=== PATIENT | female | born 1960 | race Caucasian/White ===

== ENCOUNTER 2023-07-30 08:12 | Outpatient (CLI) | payer OTHER, MEDICARE ==
--- NOTE | 2023-07-30 14:44 | Ultrasound Report ---
PROCEDURE: Abdomen Limited INDICATIONS: ABD MASS TECHNIQUE: Real-time focused scanning was performed of the abdomen, with image documentation. COMPARISONS: None. FINDINGS: Severely limited examination due to the patient's body habitus. Liver: Liver is normal in size and increased in echotexture. Portal vein is not visualized. Gallbladder: Surgically absent. Biliary ducts: Intrahepatic bile ducts are non-dilated. Extrahepatic bile duct caliber is not visua lized. Pancreas: Not visualized. Right kidney: Normal in size and echotexture. Right kidney measures 9.9 cm long. No hydronephrosi s or nephrolithiasis. No solid masses. No complex renal cystic lesions which require follow-up. Aorta: Visualized aorta is normal in caliber at less than 3 cm. IVC: Intrahepatic inferior vena cava is patent. Miscellaneous: No free abdominal fluid. IMPRESSION: 1. Severely limited examination due to the patient's body habitus. No mass is identified, but a mass cannot be excluded. Recommend CT with contrast for further evaluation. Reviewed by: Jerica Mabry MD on 07/30/2023 2:42 PM PST Approved by: Jerica Mabry MD on 07/30/2023 2:42 PM PST Station ID: [id number]
== END 2023-07-30 08:13 | disposition home or self-care (01) ==
LOC: DI 08:12
PROVIDERS: ATTEND Nurse Practitioner
DX: R19.01 Right upper quadrant abdominal swelling, mass and lump (principal)

== ENCOUNTER 2023-10-19 23:15 | Emergency (ER) | payer OTHER, MEDICARE ==
[2023-10-20 00:05] LABS: BASOPHILS # (AUTO) 0.1 10^3/uL (0.0-0.1); BASOPHILS % (AUTO) 0.5 %; EOSINOPHILS # (AUTO) 0.2 10^3/uL (0.0-0.7); EOSINOPHILS % (AUTO) 1.1 %; HCT - HEMATOCRIT 47.3 % (37.0-47.0); HGB - HEMOGLOBIN 15.8 g/dL (12.0-16.0); LYMPHOCYTES % (AUTO) 28.7 %; MEAN CORPUSCULAR HEMOGLOBIN 31.5 pg (27.0-31.0); MEAN CORPUSCULAR HGB CONC 33.4 g/dL (32.0-36.0); MEAN CORPUSCULAR VOLUME 94.4 fL (81.0-99.0); MEAN PLATELET VOLUME 11.8 fL (7.9-10.8); MONOCYTES % (AUTO) 7.1 %; NEUTROPHILS # (AUTO) 8.7 10^3/uL (1.5-6.6); NEUTROPHILS % (AUTO) 62.4 %; PLT - PLATELET COUNT 255 10^3/uL (130-450); RED BLOOD COUNT 5.01 10^6/uL (4.20-5.40); RED CELL DISTRIBUTION WIDTH 12.3 % (12.0-15.0)
[2023-10-20 00:21] LABS: ALBUMIN 4.2 g/dL (3.2-5.5); ALBUMIN/GLOBULIN RATIO 1.4 (1.0-2.2); BILIRUBIN,TOTAL 0.4 mg/dL (0.2-1.0); CALCIUM 9.9 mg/dL (8.5-10.3); CREATININE 0.9 mg/dL (0.6-1.3); POTASSIUM 3.3 mmol/L (3.5-4.5); TOTAL PROTEIN 7.1 g/dL (6.4-8.9)
[2023-10-20] MEDS: KETOROLAC 15 MG/ML VIAL IVP STA (00:33)
[2023-10-20] MEDS: SODIUM CHLORIDE 0.9% 1,000 ML IV STA (00:33)
[2023-10-20] MEDS: ONDANSETRON ODT 4 MG TABLET TL STA (00:34)
[2023-10-20] MEDS ORDERED: iohexoL-300 100 ML VIAL ONE (00:38)
[2023-10-20] MEDS: iohexoL-300 100 ML VIAL IVP ONE (01:01)
--- NOTE | 2023-10-20 01:23 | CT Report ---
PROCEDURE: Abdomen/Pelvis W INDICATIONS: RLQ PAIN CONTRAST: 100 ML OMNI 300 TECHNIQUE: After the administration of intravenous contrast, a CT scan of the abdomen and pelvis was performed. Images were recorded and evaluated at appropriate window settings. Reformats: coronal and sagittal. F or radiation dose reduction, the following was used: automated exposure control, adjustment of mA and /or kV according to patient size. COMPARISON: Correlation is made with abdominal ultrasound, 07/30/2023 FINDINGS: Image quality: Diagnostic. Lower chest: Unremarkable. Liver: No solid mass. Diffuse fatty liver infiltration can be seen. Gallbladder: Cholecystectomy. Biliary tree: No intrahepatic or extrahepatic dilation, accounting for age. Spleen: No splenomegaly. An accessory splenule is incidentally noted along the hilum of the primary spleen. Pancreas: No pancreatic ductal dilation. Adrenals: No adrenal nodule. Kidneys and ureters: No hydronephrosis. No renal cystic lesion which requires follow up. No solid mas s. Stomach, bowel and peritoneum: No appendix can be seen, either normal or abnormal. No focal right low er quadrant inflammatory changes are seen. No dilated loops of small bowel are seen. No significant colonic abnormality is seen. No pathologic free fluid. Lymph nodes: No central or retroperitoneal adenopathy. Vessels: No infrarenal aortic aneurysm. Patent portal vein. PELVIS Reproductive organs: This patient is status post hysterectomy. No adnexal masses can be seen. Bladder: No abnormal wall thickening, accounting for underdistention. Pelvic lymph nodes: No pelvic adenopathy by size criteria. Bones: No aggressive osseous abnormality. Mild levoconvex scoliotic curvature is seen. At least mod erate lumbar spine degenerative change can be seen. Other: No significant ventral or inguinal hernia. IMPRESSION: No appendix can be seen, either normal or abnormal. No focal right lower quadrant inflammatory change s are seen. Additional findings: Fatty liver infiltration Cholecystectomy Accessory splenule Hysterectomy Mild levoconvex sclerotic curvature Lumbar spine degenerative change Reviewed by: Jim Jordan MD on 10/20/2023 12:22 AM ESTEBAN Approved by: Jim Jordan MD on 10/20/2023 12:22 AM ESTEBAN Station ID: [id number]
--- NOTE | 2023-10-20 01:31 | ED Physician Documentation ---
PD HPI ABD PAIN - Stated complaint Stated Complaint: R ABD PX - Chief complaint Chief Complaint: Abd Pain - History obtained from History obtained from: Patient - Additional information Additional information: 63-year-old female presents for right-sided upper and lower abdominal pain with nausea, 1 episode of emesis after arrival to the emergency department. Patient states that earlier this week she underwent EGD as far as routine screening for her chronic GERD. She states that everything was normal. This evening her pain developed and feels similar to when she was diagnosed with a kidney stone several years ago. Denies fevers, chills, urinary changes. Review of Systems Constitutional: denies: Fever, Chills Cardiac: denies: Chest pain / pressure, Palpitations, Calf pain Respiratory: denies: Dyspnea, Cough, Wheezing GI: reports: Abdominal Pain, Nausea, Vomiting. denies: Constipation, Diarrhea : denies: Dysuria, Frequency, Hesitancy PD PAST MEDICAL HISTORY - Past Medical History Cardiovascular: Hypertension GI: Other : Kidney stones Other Past Medical History: IBS - Past Surgical History Past Surgical History: Yes General: Cholecystectomy /[employer]: Hysterectomy - Present Medications Home Medications: Ambulatory Orders Medication Instructions Recorded Confirmed Dicyclomine [Bentyl] 1 - 2 tab PO QID PRN #20 cap 10/20/23 Ondansetron Odt [Zofran] 4 mg TL Q6H PRN #10 tablet 10/20/23 - Allergies Allergies/Adverse Reactions: Allergies Allergy/AdvReac Type Severity Reaction Status Date / Time Penicillins Allergy Rash Verified 10/19/23 23:44 adhesive AdvReac Rash Verified 10/19/23 23:44 cat dander AdvReac Respiratory Verified 10/19/23 23:44 - Social History Does the pt smoke?: No Smoking Status: Never smoker Does the pt drink ETOH?: No Does the pt have substance abuse?: No - Immunizations Immunizations are current?: Yes - POLST Patient has POLST: No PD ED PE NORMAL - Vitals Vital signs reviewed: Yes - General General: Alert and oriented X 3, No acute distress, Well developed/nourished - Cardiac Cardiac: RRR, Strong equal pulses - Respiratory Respiratory: No respiratory distress, Clear bilaterally - Abdomen Abdomen: Soft, Non tender, Non distended - Derm Derm: Normal color, Warm and dry, No rash - Extremities Extremities: No deformity, No tenderness to palpate, Normal ROM s pain, No edema - Neuro Neuro: Alert and oriented X 3, coremaker floor 2-12 intact, No motor deficit, Normal speech Results - Vitals Vitals: Vital Signs - 24 hr 10/19/23 10/19/23 10/20/23 23:38 23:55 01:39 Temperature 36.6 C Heart Rate 92 89 82 Respiratory 18 18 Rate Blood Pressure 125/96 H 128/89 H O2 Saturation 100 98 10/20/23 03:11 Temperature Heart Rate 84 Respiratory 18 Rate Blood Pressure 117/100 H O2 Saturation 98 Oxygen O2 Source Room air - Labs Labs: Laboratory Tests 10/20/23 10/20/23 10/20/23 00:00 00:00 01:38 WBC 14.0 H RBC 5.01 Hgb 15.8 Hct 47.3 H MCV 94.4 MCH 31.5 H MCHC 33.4 RDW 12.3 Plt Count 255 MPV 11.8 H Neut # (Auto) 8.7 H Lymph # (Auto) 4.0 H Hinds # (Auto) 1.0 Eos # (Auto) 0.2 Baso # (Auto) 0.1 Absolute Nucleated RBC 0.00 Nucleated RBC % 0.0 Sodium 138 Potassium 3.3 L Chloride 104 Carbon Dioxide 24 Anion Gap 10.0 BUN 13 Creatinine 0.9 Estimated GFR (MDRD) 63 L Glucose 123 H Calcium 9.9 Total Bilirubin 0.4 AST 20 ALT 20 Alkaline Phosphatase 74 Total Protein 7.1 Albumin 4.2 Globulin 2.9 Albumin/Globulin Ratio 1.4 Lipase 25 Urine Color YELLOW Urine Clarity CLEAR Urine pH 5.0 Ur Specific Mathews <=1.005 Urine Protein NEGATIVE Urine Glucose (UA) NEGATIVE Urine Ketones NEGATIVE Urine Occult Blood NEGATIVE Urine Nitrite NEGATIVE Urine Bilirubin NEGATIVE Urine Urobilinogen 0.2 (NORMAL) Ur Leukocyte Esterase NEGATIVE Ur Microscopic Review NOT INDICATED Urine Culture Comments NOT INDICATED PD Medical Decision Making - ED course Complexity details: reviewed results, re-evaluated patient, considered differential, d/w patient, d/w family ED course: Nontoxic patient with right-sided upper and lower abdominal pain. Patient threw up once after arrival to the emergency department and stated that after she threw up her pain was still present, but much better. Abdomen is soft, minimal tenderness to deep palpation in the right side. Based on patient's recent history of endoscopy as well as history of renal stones will order labs, CT imaging. IV fluids, nausea medications, Toradol ordered Laboratory work is reviewed, there is mild leukocytosis, expected in vomiting. Other laboratory work is unremarkable. Hemoglobin normal, normal electrolytes, liver and kidney enzymes normal. CT unable to visualize appendix, however there were no secondary symptoms of appendicitis. Given patient's otherwise benign abdominal exam I have low suspicion for appendicitis at this time. Patient has had no further episodes of emesis since arrival to ED bed. Patient and at bedside informed of all lab and imaging findings. No obvious source of patient's discomfort, will trial Bentyl and Zofran for home. Patient counseled to return to the emergency department if she notices worsening symptoms. Departure - Departure Disposition: Home, Self Care Clinical Impression: Abdominal pain Qualifiers: Abdominal location: generalized Qualified Code(s): R10.84 - Generalized abdominal pain Condition: Stable Instructions: Abdominal Pain Prescriptions: Dicyclomine [Bentyl] 1 - 2 tab PO QID PRN #20 cap PRN Reason: Abdominal Pain Ondansetron Odt [Zofran] 4 mg TL Q6H PRN #10 tablet PRN Reason: Nausea / Vomiting Comments: Your laboratory work today did not show any acute findings. On abdominal CT today we were unable to visualize your appendix, however there were no secondary signs of appendicitis, no kidney stones. An antinausea medication as well as an antispasm medication has been sent to the [place] pharmacy. If you are still experiencing symptoms call your GI doctor for follow-up. If your symptoms worsen you may return to the emergency department for repeat evaluation Forms: PCP List Discharge Date/Time: 10/20/23 03:11
[2023-10-20 01:40] VITALS: O2SAT 98
[2023-10-20 02:12] LABS: BILIRUBIN,URINE NEGATIVE (NEGATIVE); GLUCOSE, URINE (UA) NEGATIVE (NEGATIVE); KETONES,URINE (UA) NEGATIVE (NEGATIVE); LEUKOCYTE ESTERASE, URINE NEGATIVE (NEGATIVE); NITRITE,URINE NEGATIVE (NEGATIVE); OCCULT BLOOD,URINE NEGATIVE (NEGATIVE); PROTEIN,URINE NEGATIVE (NEGATIVE); UROBILINOGEN,URINE 0.2 (NORMAL) E.U./dL (NORMAL)
[2023-10-20 02:46] LABS: CLARITY,URINE CLEAR (CLEAR)
[2023-10-20 03:13] VITALS: BP 117/100
== END 2023-10-20 03:11 | disposition home or self-care (01) ==
LOC: ED 23:15
DX: R10.84 Generalized abdominal pain (principal); R11.2 Nausea with vomiting, unspecified; K58.9 Irritable bowel syndrome, unspecified
CPT/HCPCS: 36415; 74177; 80053; 81003; 83690; 85025; 96374; 99284; Q0162; Q9967; 81001; 87086

== ENCOUNTER 2023-12-31 09:21 | Outpatient (CLI) | payer OTHER, MEDICARE ==
--- NOTE | 2024-01-07 10:17 | Mammography Report ---
BILATERAL DIGITAL SCREENING MAMMOGRAM 3D/2D: 12/31/2023 CLINICAL: Routine screening. Family history of breast cancer. No prior exams were available for comparison. There are scattered areas of fibroglandular density in both breasts (category b / 25%-50% glandular t issue). There is a focal asymmetry in the left breast central to the nipple middle depth. No other significant masses, calcifications, or other findings are seen in either breast. IMPRESSION: INCOMPLETE: NEEDS ADDITIONAL IMAGING EVALUATION The focal asymmetry in the left breast is indeterminate. Additional views with possible ultrasound a re recommended. Based on the Tyrer Cuzick model (a risk assessment model) the patient's lifetime risk is 10.0% and he r 10 year risk is 4.9%. According to the ACR, ACS, and NCCN guidelines, an annual breast MRI exam andrea ng with mammogram is recommended if the patient's lifetime risk is 20% or greater. This exam was interpreted at Station ID: [id number]. NOTE: For mammograms, a report in lay terms will be sent to the patient. Approximately 15% of breast malignancies will not be visualized mammographically. In the management of a palpable breast mass, a negative mammogram must not discourage biopsy of a clinically suspicious lesion. Electronically Signed By: Rodney Stuart M.D. lc/:01/06/2024 11:59:31 ACR BI-RADS Category 0: Incomplete 3340F PARENCHYMAL PATTERN: (A) - The breast(s) demonstrate(s) scattered fibroglandular densities. BI-RADS CATEGORY: (0) - 0 Mammo and [place] [id number] Immediate follow-up LATERALITY: (B)
== END 2023-12-31 09:22 | disposition home or self-care (01) ==
LOC: DI 09:21
DX: Z12.31 Encounter for screening mammogram for malignant neoplasm of breast (principal); Z80.3 Family history of malignant neoplasm of breast; R92.323 Mammographic fibroglandular density, bilateral breasts; R92.8 Other abnormal and inconclusive findings on diagnostic imaging of breast

== ENCOUNTER 2024-01-17 10:45 | Outpatient (CLI) | payer OTHER, MEDICARE ==
--- NOTE | 2024-01-20 08:07 | Mammography Report ---
UNILATERAL LEFT DIGITAL DIAGNOSTIC MAMMOGRAM 3D/2D WITH SPOT COMPRESSION: 01/17/2024 CLINICAL: Patient returns today to evaluate a focal asymmetry in the left breast. Comparison is made to exam dated: 12/31/2023 mammogram - [facility]. There are scattered areas of fibroglandular density in the left breast (category b / 25%-50% glandula r tissue). There is an oval focal asymmetry with a circumscribed margin in the left breast at 12 o'clock middle depth. This is seen in additional views. No other significant masses or calcifications are seen in the breast. IMPRESSION: INCOMPLETE: NEEDS ADDITIONAL IMAGING EVALUATION The oval focal asymmetry in the left breast is indeterminate. An ultrasound is recommended. Based on the Tyrer Cuzick model (a risk assessment model) the patient's lifetime risk is 10.0% and he r 10 year risk is 4.9%. According to the ACR, ACS, and NCCN guidelines, an annual breast MRI exam andrea ng with mammogram is recommended if the patient's lifetime risk is 20% or greater. This exam was interpreted at Station ID: [id number]. NOTE: For mammograms, a report in lay terms will be sent to the patient. Approximately 15% of breast malignancies will not be visualized mammographically. In the management of a palpable breast mass, a negative mammogram must not discourage biopsy of a clinically suspicious lesion. Electronically Signed By: Crow Deluca M.D. ar/:01/17/2024 21:10:31 ACR BI-RADS Category 0: Incomplete 3340F PARENCHYMAL PATTERN: (A) - The breast(s) demonstrate(s) scattered fibroglandular densities. BI-RADS CATEGORY: (0) - 0 Ultrasound [id number] Immediate follow-up LATERALITY: (L)
--- NOTE | 2024-01-20 08:07 | Ultrasound Report ---
LIMITED ULTRASOUND OF LEFT BREAST: 01/17/2024 CLINICAL: Patient returns today to evaluate a focal asymmetry in the left breast. Comparison is made to exams dated: 12/31/2023 mammogram and 01/17/2024 mammogram - [facility]. Color flow ultrasound of the left breast 10-12 o'clock region was performed. Lisa scale images of t he real-time examination were reviewed. There is a benign 0.4 cm x 0.3 cm x 0.3 cm oval lymph node with a circumscribed margin in the left br east at 12 o'clock middle depth 2 cm from the nipple. This oval lymph node displays fatty hilum. Th is correlates with mammography findings. IMPRESSION: BENIGN There is no sonographic evidence of malignancy. The 0.4 cm x 0.3 cm x 0.3 cm oval lymph node in the left breast is benign. Return to annual mammogram screening schedule is recommended. This exam was interpreted at Station ID: [id number]. Electronically Signed By: Crow Deluca M.D. ar/:01/17/2024 21:12:47 Ultrasound BI-RADS: 2 Benign BI-RADS CATEGORY: (2) - 2 Mammogram [id number] return to screening LATERALITY: (B)
== END 2024-01-17 10:46 | disposition home or self-care (01) ==
LOC: DI 10:45
PROVIDERS: ATTEND Nurse Practitioner
DX: R92.8 Other abnormal and inconclusive findings on diagnostic imaging of breast (principal); R92.322 Mammographic fibroglandular density, left breast